=== PATIENT | female | born 1950 | race Caucasian/White ===

== ENCOUNTER 2016-07-26 21:46 | Emergency (ER) | payer MEDICARE, MEDICAID ==
[2016-07-26 21:46] VITALS: BMI 29.2
[2016-07-26 22:01] VITALS: O2SAT 99
[2016-07-26] MEDS ORDERED: Sodium Chloride 0.9% 500 ML IV ONE ×2 (22:14→22:45)
[2016-07-26] MEDS ORDERED: Albuterol-Ipratrop 3 mg / 0.5 (3 ml) UD INH STA (22:15)
[2016-07-26] MEDS ORDERED: Albuterol-Ipratrop 3 mg / 0.5 (3 ml) UD ONE (22:45)
[2016-07-26 22:48] LABS: BASO % 0.4 % (0.0-2.0); EOS # 0.1 K/uL (0.0-0.7); EOS % 0.9 % (0.0-4.0); HEMATOCRIT 38.2 % (34.0-47.0); LYMPH # 3.6 K/uL (1.0-4.3); LYMPH % 36.1 % (20.0-40.0); MEAN CELL VOLUME 87.4 fL (81.0-99.0); MEAN CORPUSCULAR HEMOGLOBIN 29.7 pg (27.0-31.0); MEAN CORPUSCULAR HGB CONC 33.9 g/dL (33.0-37.0); MEAN PLATELET VOLUME 8.9 fL (7.2-11.7); MONO # 0.8 K/uL (0.0-0.8); MONO % 8.2 % (0.0-10.0); NRBC % 0.1 % (0.0-2.0); RED CELL DISTRIBUTION WIDTH 13.5 % (11.5-14.5); WHITE BLOOD COUNT 9.9 K/uL (4.8-10.8)
[2016-07-26 22:57] LABS: CHLORIDE 96 mmol/L (98-107); POTASSIUM 3.6 mmol/L (3.6-5.2); SODIUM 135 mmol/L (132-148)
[2016-07-26 22:59] LABS: BILIRUBIN,TOTAL 0.5 mg/dL (0.2-1.3); GFR AFRICAN-AMERICAN > 60
[2016-07-26 23:00] LABS: ALB/GLOB RATIO 1.4 (1.0-2.1); ALKALINE PHOSPHATASE 113 U/L (38-126); ALT/SGPT 20 U/L (9-52); AST/SGOT 21 U/L (14-36); BLOOD UREA NITROGEN 8 mg/dL (7-17); CARBON DIOXIDE 29 mmol/L (22-30); GLUCOSE,RANDOM 101 mg/dL (65-105); TOTAL PROTEIN 7.7 g/dL (6.3-8.3)
[2016-07-26 23:43] VITALS: BP 157/93; PULSE 69; RESP 18; TEMP 97.9
--- NOTE | 2016-07-26 23:46 | C.PDOC ---
History Of Present Illness Patient is a 65 year old female who presents to the ER with a complaint of a dry nonproductive cough for the past 2 days. Patient reports she has a son with similar symptoms and notes they sleep in the same bed room. Denies fever, chills or vomiting. Time Seen by Provider: 07/26/16 22:06 Chief Complaint (Nursing): Cough, Cold, Congestion History Per: Patient History/Exam Limitations: no limitations Onset/Duration Of Symptoms: Hrs Current Symptoms Are (Timing): Still Present Sick Contacts (Context): Family Member(s) (son) Associated Symptoms: Cough. denies: Fever, Chills, Sputum, Vomiting Recent travel outside of the [place]: No Past Medical History Reviewed: Historical Data, Nursing Documentation, Vital Signs Vital Signs: Last Vital Signs Temp 97.9 F 07/26/16 23:42 Pulse 69 07/26/16 23:42 Resp 18 07/26/16 23:42 BP 157/93 H 07/26/16 23:42 Pulse Ox 99 07/26/16 23:47 - Medical History PMH: Anemia, Anxiety, Arthritis, Bronchitis, Depression, Diverticulitis, Gastritis, Gastrointestinal Ulcer, HTN, Migraine, Pneumonia, Sleep Apnea (DOES NOT USE C PAP) Surgical History: Endoscopy - [facility] Procedures ENDOSC POLYPECTOMY OF LG INTEST (09/17/13) ESOPHAGOGASTRODUODENOSCOPY [EGD] W/CLOSED BIOPSY (09/30/14) Family History: States: Unknown Family Hx - Social History Hx Tobacco Use: No Hx Alcohol Use: No Hx Substance Use: No - Immunization History Hx Tetanus Toxoid Vaccination: Yes Hx Influenza Vaccination: Yes Hx Pneumococcal Vaccination: Yes Review Of Systems Constitutional: Negative for: Fever, Chills Respiratory: Positive for: Cough. Negative for: Sputum Gastrointestinal: Negative for: Vomiting Physical Exam - Physical Exam Appears: Well, Non-toxic Skin: Normal Color, Warm, Dry Head: Atraumatic, Normacephalic Eye(s): bilateral: Normal Inspection, EOMI Oral Mucosa: Moist Throat: Normal, Erythema (mild), No Exudate Neck: Normal, Supple Chest: Symmetrical, No Tenderness Cardiovascular: Rhythm Regular, No Murmur Respiratory: Normal Breath Sounds, No Rales, No Rhonchi, No Wheezing Gastrointestinal/Abdominal: Soft, No Tenderness Neurological/Psych: Oriented x3, Normal Speech, Normal Cognition ED Course And Treatment - Laboratory Results Result Diagrams: 07/26/16 22:46 07/26/16 22:46 Lab Interpretation: Normal (trop neg.) ECG: Interpreted By Me ECG Rhythm: Sinus Rhythm ECG Interpretation: Normal Rate From EC O2 Sat by Pulse Oximetry: 99 Pulse Ox Interpretation: Normal - Radiology CXR: Interpreted by Me CXR Interpretation: Yes: No Acute Disease Progress Note: EKG and CXR ordered. Nebulizer treatment solumedrol and IV fluids administered. Reevaluation Time: 23:41 Reassessment Condition: Improved Medical Decision Making Medical Decision Making: mild cough, non-productive normal labs and CXR son @ home with same symptoms. flu neg. Disposition Doctor Will See Patient In The: Office Counseled Patient/Family Regarding: Studies Performed, Diagnosis - Disposition Referrals: Harpreet Patterson Jr., MD [Primary Care Provider] - Disposition: HOME/ ROUTINE Disposition Time: 23:46 Condition: GOOD Additional Instructions: jesenia Richards/[place] unique dirijidos. Sigue con Dr. Patterson unique necessario. Print Language: DIVEHI - Clinical Impression Clinical Impression: Viral syndrome - Scribe Statement The provider has reviewed the documentation as recorded by the Scribe Provider Attestation: Greg Chu All medical record entries made by the Scribe were at my direction and personally dictated by me. I have reviewed the chart and agree that the record accurately reflects my personal performance of the history, physical exam, medical decision making, and the department course for this patient. I have also personally directed, reviewed, and agree with the discharge instructions and disposition.
--- NOTE | 2016-07-27 07:43 | RAD ---
PROCEDURE: CHEST RADIOGRAPH, 1 VIEW HISTORY: SOB COMPARISON: None available. FINDINGS: LUNGS: Mild venous congestion. Biapical pleural thickening with upper lobe granulomatous changes. PLEURA: No pneumothorax or pleural fluid seen. CARDIOVASCULAR: Normal. OSSEOUS STRUCTURES: No significant abnormalities. VISUALIZED UPPER ABDOMEN: Normal. OTHER FINDINGS: None. IMPRESSION: Mild venous congestion. Biapical pleural thickening with upper lobe granulomatous changes.
--- NOTE | 2016-08-01 20:51 | CARD ---
APPROVED REPORT EKG Measurement Heart [id number] <Conclusion> Normal sinus rhythm Moderate voltage criteria for LVH, may be normal variant Nonspecific ST and T wave abnormality Abnormal ECG
== END 2016-07-27 00:10 | disposition home or self-care (01) ==
LOC: C.ER 21:46 → SUPCPDRO 21:46 → C.ER 07-27 00:10
DX: B34.9 Viral infection, unspecified (principal)
CPT/HCPCS: 71010; 80053; 83880; 84484; 85025; 87040; 87804; 93005; 94150; 94640; 96361; 96374; 99284; J2930; J7040

== ENCOUNTER 2016-12-21 23:41 | Emergency (ER) | payer MEDICARE, MEDICAID ==
[2016-12-21 23:41] VITALS: BMI 29.2
[2016-12-22 00:30] VITALS: O2SAT 99
[2016-12-22] MEDS ORDERED: Sodium Chloride 0.9% 500 ML IV ONE (00:43)
--- NOTE | 2016-12-22 00:44 | C.PDOC ---
History Of Present Illness 66 year old female with prior Hx of HTN and diverticulitis presents to the ED with pain in the abdomen and vomit for approximately 2 weeks. Patient states having nausea, headache, vomit associated with her abdominal pain. She states that she might have lost 20 pounds in 3 weeks due to her lack of appetite because of her symptoms. Patient denies diarrhea, chills, fever or known sick contacts. Time Seen by Provider: 12/22/16 00:30 Chief Complaint (Nursing): Abdominal Pain History Per: Patient History/Exam Limitations: no limitations Onset/Duration Of Symptoms: Days Current Symptoms Are (Timing): Still Present Location Of Pain/Discomfort: Diffuse Quality Of Discomfort: "Pain" Associated Symptoms: Nausea, Vomiting, Loss Of Appetite. denies: Fever, Chills , Diarrhea, Urinary Symptoms Last Bowel Movement: Today (Normal) Recent travel outside of the [place]: No Additional History Per: Patient Past Medical History Reviewed: Historical Data, Nursing Documentation, Vital Signs Vital Signs: Last Vital Signs Temp 98.4 F 12/22/16 04:15 Pulse 84 12/22/16 04:15 Resp 16 12/22/16 04:15 BP 134/72 12/22/16 04:15 Pulse Ox 99 12/22/16 05:06 - Medical History PMH: Anemia, Anxiety, Arthritis, Bronchitis, Depression, Diverticulitis, Gastritis, Gastrointestinal Ulcer, HTN, Migraine, Pneumonia, Sleep Apnea Denies: Chronic Kidney Disease Surgical History: Endoscopy - [facility] Procedures ENDOSC POLYPECTOMY OF LG INTEST (09/17/13) ESOPHAGOGASTRODUODENOSCOPY [EGD] W/CLOSED BIOPSY (09/30/14) Family History: States: Unknown Family Hx - Social History Hx Tobacco Use: No Hx Alcohol Use: No Hx Substance Use: No - Immunization History Hx Tetanus Toxoid Vaccination: No Hx Influenza Vaccination: No Hx Pneumococcal Vaccination: No Review Of Systems Constitutional: Negative for: Fever, Chills, Sweats Cardiovascular: Negative for: Chest Pain Respiratory: Negative for: Shortness of Breath Gastrointestinal: Positive for: Nausea, Vomiting, Abdominal Pain. Negative for : Diarrhea, Constipation Physical Exam - Physical Exam Appears: Non-toxic, No Acute Distress Skin: Normal Color, Warm, Dry Head: Atraumatic, Normacephalic Oral Mucosa: Moist Throat: Normal, No Erythema, No Exudate Neck: Normal, Supple Chest: Symmetrical Cardiovascular: Rhythm Regular Respiratory: Normal Breath Sounds, No Accessory Muscle Use, No Rales, No Rhonchi , No Wheezing Gastrointestinal/Abdominal: Bowel Sounds, Tenderness, Distention, No Rebound Extremity: Normal ROM, No Pedal Edema, Capillary Refill (less than 2 seconds), No Deformity, No Swelling Pulses: Left Radial: Normal, Right Radial: Normal, Left Dorsalis Pedis: Normal, Right Dorsalis Pedis: Normal Neurological/Psych: Oriented x3, Normal Speech, Normal Cognition ED Course And Treatment - Laboratory Results Result Diagrams: 12/22/16 01:00 12/22/16 01:00 O2 Sat by Pulse Oximetry: 99 Pulse Ox Interpretation: Normal - CT Scan/US CT abdo/pelvis Other Rad Studies (CT/US): Interpreted By Me, Read By Radiologist, Radiology Report Reviewed CT/US Interpretation: FINDINGS: Lower thorax: The bilateral lung bases are clear. . ABDOMEN: Liver: No acute findings. Gallbladder and bile ducts: The gallbladder is decompressed. No calcified. stones. No significant intra- or extrahepatic biliary ductal dilation. Pancreas: Enhances homogeneously. No ductal dilation. No discrete mass. Spleen: No acute findings. Adrenals: No acute findings. Kidneys and ureters: No acute findings. No hydronephrosis or renal calculi. No discrete solid mass. . PELVIS: Bladder: No acute findings. Reproductive: A 3.5 cm rounded focus of decreased attenuation is identified. within the left adnexa, findings are suggestive of a simple cyst. . Appendix: The air filled appendix is of normal caliber (series 2, image 67) . . ABDOMEN and PELVIS: Stomach and bowel: Mural thickening with trace surrounding inflammatory. change is identified within the sigmoid colon - findings suggestive of. acute/early diverticulitis, for which clinical correlation is needed. No. drainable fluid collection or perforation is detected. Peritoneum: As above. Lymph nodes: No pathologically enlarged lymph nodes. Vasculature: Calcified atherosclerotic disease. Bones: No acute fracture. . IMPRESSION: Finding suggestive of acute/early rectosigmoid diverticulitis, for which. clinical correlation is needed. Left adnexal ( likely) cyst Medical Decision Making Medical Decision Making: Impression: 66 y/o female presents with abdominal pain associated with vomit for past 2 weeks Plan: * IV fluids, Zofran 4mg IVP, Morphine 4 mg IVP administered * Blood work ordered * UA ordered * CT abdo/pelvis ordered CT abdo/pelvis was ordered to rule out bowel obstruction vs diverticulitis vs peptic ulcer disease. After reviewing the CT report, pete was discharged home with a diagnosis of diverticulitis and was prescribed 2 antibiotics and medicine for pain management. Disposition - Disposition Referrals: [facility] at [facility] [Outside] Disposition: HOME/ ROUTINE Disposition Time: 03:53 Condition: GOOD Prescriptions: Acetaminophen/Hydrocodone Bi [Vicodin 300 mg-5 mg] 1 tab PO QID PRN #14 tab PRN Reason: Pain, Mild (1-3) Metronidazole 500 mg PO TID #30 tablet Sulfamethoxazole/Trimethoprim [Bactrim DS 800 mg-160 mg] 1 tab PO BID #20 tab Forms: [employer] - Clinical Impression Clinical Impression: Diverticulitis large intestine - Scribe Statement The provider has reviewed the documentation as recorded by the Scribe Billy Romero All medical record entries made by the Scribe were at my direction and personally dictated by me. I have reviewed the chart and agree that the record accurately reflects my personal performance of the history, physical exam, medical decision making, and the department course for this patient. I have also personally directed, reviewed, and agree with the discharge instructions and disposition.
[2016-12-22 01:03] LABS: BASO % 0.5 % (0.0-2.0); EOS # 0.1 K/uL (0.0-0.7); EOS % 0.7 % (0.0-4.0); HEMATOCRIT 36.6 % (34.0-47.0); LYMPH # 3.1 K/uL (1.0-4.3); LYMPH % 39.4 % (20.0-40.0); MEAN CELL VOLUME 90.6 fL (81.0-99.0); MEAN CORPUSCULAR HEMOGLOBIN 31.9 pg (27.0-31.0); MEAN CORPUSCULAR HGB CONC 35.2 g/dL (33.0-37.0); MONO # 0.6 K/uL (0.0-0.8); MONO % 7.8 % (0.0-10.0); NRBC % 0.1 % (0.0-2.0); RED CELL DISTRIBUTION WIDTH 13.4 % (11.5-14.5); WHITE BLOOD COUNT 7.8 K/uL (4.8-10.8)
[2016-12-22 01:10] LABS: CHLORIDE 96 mmol/L (98-107)
[2016-12-22 01:11] LABS: POTASSIUM 3.8 mmol/L (3.6-5.2); SODIUM 132 mmol/L (132-148)
[2016-12-22 01:13] LABS: GFR AFRICAN-AMERICAN > 60
[2016-12-22 01:14] LABS: ALB/GLOB RATIO 1.8 (1.0-2.1); ALKALINE PHOSPHATASE 130 U/L (38-126); ALT/SGPT 38 U/L (9-52); AST/SGOT 19 U/L (14-36); BILIRUBIN,TOTAL 0.4 mg/dL (0.2-1.3); BLOOD UREA NITROGEN 7 mg/dL (7-17); CALCIUM 8.7 mg/dl (8.6-10.4); CARBON DIOXIDE 25 mmol/L (22-30); GLUCOSE,RANDOM 94 mg/dL (65-105); TOTAL PROTEIN 7.1 g/dL (6.3-8.3)
[2016-12-22] MEDS ORDERED: Morphine 4 MG/ML VIAL ONE (01:20)
[2016-12-22] MEDS ORDERED: Iodixanol 320 MG/ML 100 ML BOTTLE IV ONE (02:10)
--- NOTE | 2016-12-22 03:21 | CT ---
EXAM: CT Abdomen and Pelvis With Intravenous Contrast CLINICAL HISTORY: 66 years old, female; Pain; Abdominal pain; Prior surgery; Patient HX: 01-21-16 images sent; Additional info: Abd pain TECHNIQUE: Axial computed tomography images of the abdomen and pelvis with intravenous contrast. All CT scans at this facility use one or more dose reduction techniques, viz.: automated exposure control; ma/kV adjustment per patient size (including targeted exams where dose is matched to indication; i.e. head); or iterative reconstruction technique. Coronal and sagittal reformatted images were created and reviewed. CONTRAST: 199 mL of [id number] administered intravenously. COMPARISON: CT - ABD PELVIS PO IV CONTRAST 2016-01-21 19:47 FINDINGS: Lower thorax: The bilateral lung bases are clear. ABDOMEN: Liver: No acute findings. Gallbladder and bile ducts: The gallbladder is decompressed. No calcified stones. No significant intra- or extrahepatic biliary ductal dilation. Pancreas: Enhances homogeneously. No ductal dilation. No discrete mass. Spleen: No acute findings. Adrenals: No acute findings. Kidneys and ureters: No acute findings. No hydronephrosis or renal calculi. No discrete solid mass. PELVIS: Bladder: No acute findings. Reproductive: A 3.5 cm rounded focus of decreased attenuation is identified within the left adnexa, findings are suggestive of a simple cyst. Appendix: The air filled appendix is of normal caliber (series 2, image 67) . ABDOMEN and PELVIS: Stomach and bowel: Mural thickening with trace surrounding inflammatory change is identified within the sigmoid colon - findings suggestive of acute/early diverticulitis, for which clinical correlation is needed. No drainable fluid collection or perforation is detected. Peritoneum: As above. Lymph nodes: No pathologically enlarged lymph nodes. Vasculature: Calcified atherosclerotic disease. Bones: No acute fracture. IMPRESSION: Finding suggestive of acute/early rectosigmoid diverticulitis, for which clinical correlation is needed. Left adnexal (likely) cyst
[2016-12-22 05:53] VITALS: BP 134/72; PULSE 84; RESP 16; TEMP 98.4
== END 2016-12-22 04:15 | disposition home or self-care (01) ==
LOC: C.ER 23:41
DX: K57.32 Diverticulitis of large intestine without perforation or abscess without bleeding (principal)
CPT/HCPCS: 74177; 80053; 83690; 85025; 96374; 96375; 99285; J2270; J2405; J7040; Q9967

== ENCOUNTER 2017-02-22 08:34 | Inpatient (IN) | payer MEDICARE, MEDICAID ==
[2017-02-22 08:36] VITALS: BMI 29.2
--- NOTE | 2017-02-22 09:04 | C.PDOC ---
Time Seen by Provider: 02/22/17 08:37 Chief Complaint (Nursing): Anxiety Past Medical History - Medical History PMH: Anemia, Anxiety, Arthritis, Bronchitis, Depression, Diverticulitis, Gastritis, Gastrointestinal Ulcer, HTN, Migraine, Pneumonia, Sleep Apnea Denies: Chronic Kidney Disease Surgical History: Endoscopy - [facility] Procedures ENDOSC POLYPECTOMY OF LG INTEST (09/17/13) ESOPHAGOGASTRODUODENOSCOPY [EGD] W/CLOSED BIOPSY (09/30/14) Family History: States: Unknown Family Hx - Social History Hx Tobacco Use: No Hx Alcohol Use: No Hx Substance Use: No - Immunization History Hx Tetanus Toxoid Vaccination: No Hx Influenza Vaccination: No Hx Pneumococcal Vaccination: No NIHSS Stroke Scale - Date/Time Evaluation Performed Date Performed: 02/22/17 Time Performed: 09:04 - How Severe is the Stoke Level of Consciousness: 0=Alert LOC to Questions: 0=Both comments correct LOC to commands: 0=Obeys both correctly Best Gaze: 0=Normal Visual: 0=No visual loss Facial: 0=Normal Motor Arm - Left: 0=No drift Motor Arm - Right: 0=No drift Motor Leg - Left: 2=Falls before 5 sec Motor Leg - Right: 0=No drift Limb Ataxia: 0=Absent Sensory: 0=Normal Best Language: 0=No aphasia Dysarthia: 0=Normal articulation Extinction & Inattention (Neglect): 0=Normal, no object Score: 2 Severity Of Stroke: 0= No Stroke Disposition - Disposition
--- NOTE | 2017-02-22 09:05 | C.PDOC ---
History Of Present Illness 66 y/o female with PMHx of Anxiety and Depression brought to ED by EMS with complaints of left sided Hemiparesthesia since last night over 6 hours ago ( Last time well) and decreased sleeping for 2 days. Patient states she is not compliant with medication for 2 days secondary to leaving medication on airplane while coming back from [facility]. Patient denies any other complaints at this time. Time Seen by Provider: 02/22/17 08:37 Chief Complaint (Nursing): Anxiety History Per: Patient History/Exam Limitations: no limitations Onset/Duration Of Symptoms: Days Current Symptoms Are (Timing): Still Present Past Medical History Reviewed: Historical Data, Nursing Documentation, Vital Signs Vital Signs: Last Vital Signs Temp 98.4 F 02/22/17 11:48 Pulse 80 02/22/17 11:54 Resp 18 02/22/17 11:54 BP 181/93 H 02/22/17 12:01 Pulse Ox 100 02/22/17 12:14 - Medical History PMH: Anemia, Anxiety, Arthritis, Bronchitis, Depression, Diverticulitis, Gastritis, Gastrointestinal Ulcer, HTN, Migraine, Pneumonia, Sleep Apnea Surgical History: Endoscopy - [facility] Procedures ENDOSC POLYPECTOMY OF LG INTEST (09/17/13) ESOPHAGOGASTRODUODENOSCOPY [EGD] W/CLOSED BIOPSY (09/30/14) Family History: States: No Known Family Hx - Social History Hx Tobacco Use: No Hx Alcohol Use: No Hx Substance Use: No - Immunization History Hx Tetanus Toxoid Vaccination: No Hx Influenza Vaccination: No Hx Pneumococcal Vaccination: No Review Of Systems Cardiovascular: Negative for: Chest Pain Respiratory: Negative for: Shortness of Breath Neurological: Positive for: Numbness. Negative for: Weakness Physical Exam - Physical Exam Additional Physical Exam Comments: Constitutional: No acute distress. Anxious appearing Head: Normocephalic. Atraumatic. Eyes: PERRL. ENT: Moist mucous membranes. Neck: Supple. Cardiovascular: Regular rate. Radial pulse 2+ bilaterally. Chest: No tenderness. Respiratory: Clear to auscultation bilaterally. GI: Soft. Nontender. Nondistended. Back: No CVA tenderness. Musculoskeletal: No tenderness or swelling of extremities. Skin: No rash. Neurologic: Alert. No facial droop. Sensation to light touch subjectively decreased on Left face, arm and leg. Motor on right side 5/5. Motor 4+/5 left arm and leg. ED Course And Treatment - Laboratory Results Result Diagrams: 02/22/17 09:43 02/22/17 09:43 O2 Sat by Pulse Oximetry: 100 (RA) Pulse Ox Interpretation: Normal NIHSS Stroke Scale - Date/Time Evaluation Performed Date Performed: 02/22/17 Time Performed: 09:05 When Was NIHSS Performed: Baseline - How Severe is the Stroke Level of Consciousness: 0=Alert LOC to Questions: 0=Both comments correct LOC to commands: 0=Obeys both correctly Best Gaze: 0=Normal Visual: 0=No visual loss Facial: 0=Normal Motor Arm - Left: 0=No drift Motor Arm - Right: 0=No drift Motor Leg - Left: 2=Falls before 5 sec Motor Leg - Right: 0=No drift Limb Ataxia: 0=Absent Sensory: 0=Normal Best Language: 0=No aphasia Dysarthia: 0=Normal articulation Extinction & Inattention (Neglect): 0=Normal, no object Score: 2 Severity Of Stroke: 1-4 = Minor Stroke rTPA Inclusion/Exclusion - Refusal of Treatment Patient Refused Treatment: No - Inclusion Criteria for Altepase Patient is 18 years or Older: Yes The Clinical Diagnosis of Ischemic Stroke That is Causing a Potentially Disabling Neurological Deficit: Yes Time of Onset is Well Established to be Less Than 270 Minute Before Treatment Would Begin: No Risk/Benefit Discussed With Patient/Family Member Present: Yes Medical Decision Making Medical Decision Making: Plan: Blood work, Ativan and UA, ECG, CT head w/o contrast ordered CXR: IMPRESSION: No active pulmonary disease. EKG NSR 80 bpm, no ST elevations, no change from previous. CT Head w/o Contrast IMPRESSION: No acute intracranial abnormality. Mild chronic microangiopathic changes. Dr. Patterson accepts admission to his service for CVA evaluation. Home dose HTN medications administered. Discussed case with resident. Disposition Discussed With : Harpreet Patterson Jr. Doctor Will See Patient In The: Hospital Counseled Patient/Family Regarding: Studies Performed - Disposition Disposition: HOSPITALIZED Disposition Time: 11:07 Condition: FAIR - Clinical Impression Clinical Impression: Hemiparesthesia - Scribe Statement The provider has reviewed the documentation as recorded by the Kevynibalek Daniel All medical record entries made by the Kevynibalek were at my direction and personally dictated by me. I have reviewed the chart and agree that the record accurately reflects my personal performance of the history, physical exam, medical decision making, and the department course for this patient. I have also personally directed, reviewed, and agree with the discharge instructions and disposition.
--- NOTE | 2017-02-22 09:21 | RAD ---
HISTORY: hemiparesthesia COMPARISON: 07/26/2016. FINDINGS: LUNGS: The lungs are well inflated and clear. PLEURA: No significant pleural effusion identified, no pneumothorax apparent. CARDIOVASCULAR: Normal. OSSEOUS STRUCTURES: No significant abnormalities. VISUALIZED UPPER ABDOMEN: Normal. OTHER FINDINGS: None. IMPRESSION: No active pulmonary disease.
[2017-02-22 09:53] LABS: BASO # 0.1 K/uL (0.0-0.2); BASO % 0.6 % (0.0-2.0); EOS % 0.1 % (0.0-4.0); HEMATOCRIT 34.8 % (34.0-47.0); LYMPH # 1.1 K/uL (1.0-4.3); LYMPH % 12.5 % (20.0-40.0); MEAN CORPUSCULAR HEMOGLOBIN 31.7 pg (27.0-31.0); MEAN CORPUSCULAR HGB CONC 35.7 g/dL (33.0-37.0); MEAN PLATELET VOLUME 9.2 fL (7.2-11.7); MONO # 0.3 K/uL (0.0-0.8); MONO % 3.9 % (0.0-10.0); RED CELL DISTRIBUTION WIDTH 13.6 % (11.5-14.5); WHITE BLOOD COUNT 8.8 K/uL (4.8-10.8)
[2017-02-22 09:58] LABS: MEAN CELL VOLUME 88.6 fL (81.0-99.0)
[2017-02-22 10:01] LABS: INR 1.2
[2017-02-22 10:05] LABS: RBC URINE 1 /hpf (0-3); URINE BACTERIA RARE (<OCC); URINE BILIRUBIN NEGATIVE (NEGATIVE); URINE BLOOD NEGATIVE (NEGATIVE); URINE COLOR Colorless (YELLOW); URINE GLUCOSE (UA) 1+ mg/dL (Normal); URINE KETONE NEGATIVE (NEGATIVE); URINE LEUKOCYTE ESTERASE 1+ Leu/uL (Negative); URINE PROTEIN NEGATIVE (NEGATIVE); URINE UROBILINOGEN NORMAL mg/dL (0.2-1.0); WBC URINE 6 /hpf (0-5)
[2017-02-22 10:09] LABS: ALB/GLOB RATIO 1.6 (1.0-2.1); ALKALINE PHOSPHATASE 144 U/L (38-126); ALT/SGPT 33 U/L (9-52); AST/SGOT 22 U/L (14-36); BILIRUBIN,TOTAL 0.5 mg/dL (0.2-1.3); BLOOD UREA NITROGEN 6 mg/dL (7-17); CALCIUM 8.9 mg/dl (8.6-10.4); CARBON DIOXIDE 29 mmol/L (22-30); CHLORIDE 97 mmol/L (98-107); CHOLESTEROL 193 mg/dL (0-199); GFR AFRICAN-AMERICAN > 60; GLUCOSE,RANDOM 139 mg/dL (65-105); POTASSIUM 3.5 mmol/L (3.6-5.2); SODIUM 134 mmol/L (132-148); TOTAL PROTEIN 7.2 g/dL (6.3-8.3)
--- NOTE | 2017-02-22 10:25 | CT ---
PROCEDURE: CT HEAD WITHOUT CONTRAST. HISTORY: hemiparesthesia COMPARISON: 12/11/2012. TECHNIQUE: Axial computed tomography images were obtained through the head/brain without intravenous contrast. Radiation dose: Total exam DLP = 892.85 mGy-cm. This CT exam was performed using one or more of the following dose reduction techniques: Automated exposure control, adjustment of the mA and/or kV according to patient size, and/or use of iterative reconstruction technique. FINDINGS: HEMORRHAGE: No intracranial hemorrhage. BRAIN: There are mild chronic microangiopathic changes. There is no mass, mass effect or abnormal extra-axial fluid collection. VENTRICLES: The ventricles are normal in size, shape and configuration. CALVARIUM: Unremarkable. PARANASAL SINUSES: Unremarkable as visualized. No significant inflammatory changes. MASTOID AIR CELLS: Unremarkable as visualized. No inflammatory changes. OTHER FINDINGS: None. IMPRESSION: No acute intracranial abnormality. Mild chronic microangiopathic changes.
[2017-02-22 15:00] VITALS: O2SAT 98
--- NOTE | 2017-02-22 16:31 | CP.PCM.HP ---
History of Present Illness - History of Present Illness History of Present Illness: PGY1 History and Physical for Dr. Patterson Past Patient History - Infectious Disease Hx of Infectious Diseases: None - Past Medical History & Family History Past Medical History?: Yes - Past Social History Smoking Status: Never Smoked - CARDIAC Hx Cardiac Disorders: Yes Hx Angina: Yes Hx Atrial Fibrillation: No Hx Cardia Arrhythmia: No Hx Circulatory Problems: No Hx Congestive Heart Failure: No Hx Heart Attack: No Hx Heart Murmur: No Hx Heart Transplant: No Hx Hypercholesterolemia: No Hx Hypertension: Yes Hx Hypotension: No Hx Internal Defibrillator: No Hx Mitral Valve Prolapse: No Hx Pacemaker: No Hx Peripheral Edema: No Hx Peripheral Vascular Disease: No - PULMONARY Hx Asthma: No Hx Bronchitis: Yes Hx Chronic Obstructive Pulmonary Disease (COPD): No Hx Emphysema: No Hx Lung Cancer: No Hx Pneumonia: Yes Hx Pulmonary Edema: No Hx Pulmonary Embolism: No Hx Respiratory Aspiration: No Hx Respiratory Tract Infection: No Hx Sleep Apnea: Yes Hx Tuberculosis: No - NEUROLOGICAL Hx Neurological Disorder: No Hx Alzheimer's Disease: No HX Cerebrovascular Accident: No Hx Dementia: No Hx Dizziness: Yes Hx Meningitis: No Hx Migraine: Yes Hx Multiple Sclerosis: No Hx Paralysis: No Hx Parkinson's Disease: No Hx Seizures: No Hx Syncope: No Hx Transient Ischemic Attacks (TIA): Yes Hx Vertigo: No - HEENT Hx HEENT Problems: Yes Hx Blind: No Hx Cataracts: Yes Hx Deafness: No Hx Difficulty Chewing: No Hx Epistaxis: No Hx Glaucoma: No Hx Macular Degeneration: No Hx Sinusitis: No - RENAL Hx Chronic Kidney Disease: No - ENDOCRINE/METABOLIC Hx Endocrine Disorders: No - HEMATOLOGICAL/ONCOLOGICAL Hx AIDS: No Hx Anemia: Yes Hx Blood Transfusions: No Hx Blood Transfusion Reaction: No Hx Bruising: No Hx Cancer: No Hx Chemotherapy: No Hx Cirrhosis: No Hx Gum Bleeding: No Hx Hemophilia: No Hx Hepatitis A: No Hx Hepatitis B: No Hx Hepatitis C: No Hx Human Immunodeficiency Virus (HIV): No Hx Leukemia: No Hx Metastesis: No Hx Shingles: No Hx Sickle Cell Disease: No Hx Unexplained Bleeding: No Hx von Willebrand's Disease: No - INTEGUMENTARY Hx Dermatological Problems: No - MUSCULOSKELETAL/RHEUMATOLOGICAL Hx Arthritis: Yes Hx Back Pain: No Hx Degenerative Joint Disease: No Hx Falls: No Hx Fractures: No Hx Gout: No Hx Herniated Disk: No Hx Myasthenia Gravis: No Hx Osteoarthritis: No Hx Osteomyelitis: No Hx Osteoporosis: No Hx Rhabdomyolysis: No Hx Rheumatoid Arthritis: No Hx Spinal Stenosis: No Hx Unsteady Gait: No - GASTROINTESTINAL Hx Gastrointestinal Disorders: Yes Hx Bowel Surgery: No Hx Clostridium Difficile: No Hx Colitis: No Hx Colostomy: No Hx Constipation: No Hx Crohn's Disease: No Hx Diarrhea: No Hx Diverticulitis: Yes Hx Esophageal Varices: No Hx Fatty Liver Disease: No Hx Gall Bladder Disease: No Hx Gastritis: Yes Hx Gastroesophageal Reflux: No Hx Hemorrhoids: No Hx Ileostomy: No Hx Irritable Bowel: No Hx Liver Failure: No Hx Nausea: No Hx Pancreatitis: No HX Swallowing Problems: No Hx Ulcer: Yes Hx Vomiting: No - GENITOURINARY/GYNECOLOGICAL Hx Genitourinary Disorders: No - PSYCHIATRIC Hx Anxiety: Yes Hx Bipolar Disorder: No Hx Depression: Yes Hx Emotional Abuse: No Hx Hallucinations: No Hx Panic Symptoms: No Hx Paranoia: No Hx Post Traumatic Stress Disorder: No Hx Psychosis: No Hx Physical Abuse: No Hx Schizophrenia: No Hx Sexual Abuse: No Hx Substance Use: No - SURGICAL HISTORY Hx Surgeries: No Other/Comment: neck cyst - ANESTHESIA Hx Anesthesia: Yes Hx Anesthesia Reactions: No Hx Malignant Hyperthermia: No Has any member of the family had a problem w/ anesthesia?: No Meds Allergies/Adverse Reactions: Allergies Allergy/AdvReac Type Severity Reaction Status Date / Time clarithromycin [From Biaxin] Allergy Verified 02/22/17 08:50 levofloxacin [From Levaquin] Allergy Verified 02/22/17 08:50 Penicillins Allergy Verified 02/22/17 08:50 pollen Allergy Intermediate CONGESTION Uncoded 02/22/17 08:50 vomiting meds Allergy Uncoded 02/22/17 08:50 Results - Vital Signs Recent Vital Signs: Last Vital Signs Temp 98.7 F 02/22/17 14:14 Pulse 79 02/22/17 14:14 Resp 16 02/22/17 14:14 BP 168/90 H 02/22/17 14:14 Pulse Ox 98 02/22/17 14:14 - Labs Result Diagrams: 02/22/17 09:43 02/22/17 09:43 Labs: Laboratory Results - last 24 hr 02/22/17 02/22/17 02/22/17 09:29 09:43 09:43 WBC 8.8 RBC 3.93 Hgb 12.4 Hct 34.8 MCV 88.6 D MCH 31.7 H MCHC 35.7 RDW 13.6 Plt Count 242 MPV 9.2 Neut % (Auto) 82.9 H Lymph % (Auto) 12.5 L [place] % (Auto) 3.9 Eos % (Auto) 0.1 Baso % (Auto) 0.6 Neut # 7.3 H Lymph # 1.1 [place] # 0.3 Eos # 0.0 Baso # 0.1 PT 13.6 H INR 1.2 APTT 31 Sodium Potassium Chloride Carbon Dioxide Anion Gap BUN Creatinine Est GFR ( Amer) Est GFR (Non-Af Amer) POC Glucose (mg/dL) 135 H Random Glucose Hemoglobin A1c Calcium Total Bilirubin AST ALT Alkaline Phosphatase Troponin I Total Protein Albumin Globulin Albumin/Globulin Ratio Triglycerides Cholesterol LDL Cholesterol Direct HDL Cholesterol Urine Color Urine Clarity Urine pH Ur Specific [place] Urine Protein Urine Glucose (UA) Urine Ketones Urine Blood Urine Nitrate Urine Bilirubin Urine Urobilinogen Ur Leukocyte Esterase Urine WBC (Auto) Urine RBC (Auto) Ur Squamous Epith Cells Urine Bacteria Blood Type Antibody Screen 02/22/17 02/22/17 02/22/17 09:43 09:43 09:43 WBC RBC Hgb Hct MCV MCH MCHC RDW Plt Count MPV Neut % (Auto) Lymph % (Auto) [place] % (Auto) Eos % (Auto) Baso % (Auto) Neut # Lymph # [place] # Eos # Baso # PT INR APTT Sodium 134 Potassium 3.5 L Chloride 97 L Carbon Dioxide 29 Anion Gap 12 BUN 6 L Creatinine 0.5 L Est GFR ( Amer) > 60 Est GFR (Non-Af Amer) > 60 POC Glucose (mg/dL) Random Glucose 139 H Hemoglobin A1c 5.6 Calcium 8.9 Total Bilirubin 0.5 AST 22 ALT 33 Alkaline Phosphatase 144 H Troponin I < 0.0120 Total Protein 7.2 Albumin 4.5 Globulin 2.8 Albumin/Globulin Ratio 1.6 Triglycerides 127 Cholesterol 193 LDL Cholesterol Direct 109 HDL Cholesterol 44 Urine Color Colorless Urine Clarity Clear Urine pH 7.0 Ur Specific [place] 1.004 Urine Protein Negative Urine Glucose (UA) 1+ Urine Ketones Negative Urine Blood Negative Urine Nitrate Negative Urine Bilirubin Negative Urine Urobilinogen Normal Ur Leukocyte Esterase 1+ H Urine WBC (Auto) 6 H Urine RBC (Auto) 1 Ur Squamous Epith Cells < 1 Urine Bacteria Rare Blood Type Antibody Screen 02/22/17 09:43 WBC RBC Hgb Hct MCV MCH MCHC RDW Plt Count MPV Neut % (Auto) Lymph % (Auto) [place] % (Auto) Eos % (Auto) Baso % (Auto) Neut # Lymph # [place] # Eos # Baso # PT INR APTT Sodium Potassium Chloride Carbon Dioxide Anion Gap BUN Creatinine Est GFR ( Amer) Est GFR (Non-Af Amer) POC Glucose (mg/dL) Random Glucose Hemoglobin A1c Calcium Total Bilirubin AST ALT Alkaline Phosphatase Troponin I Total Protein Albumin Globulin Albumin/Globulin Ratio Triglycerides Cholesterol LDL Cholesterol Direct HDL Cholesterol Urine Color Urine Clarity Urine pH Ur Specific [place] Urine Protein Urine Glucose (UA) Urine Ketones Urine Blood Urine Nitrate Urine Bilirubin Urine Urobilinogen Ur Leukocyte Esterase Urine WBC (Auto) Urine RBC (Auto) Ur Squamous Epith Cells Urine Bacteria Blood Type B POSITIVE Antibody Screen Negative
[2017-02-22 16:51] VITALS: BP 154/83; PULSE 71; RESP 20; TEMP 98.9
--- NOTE | 2017-02-22 16:58 | CP.PCM.DIS ---
Provider - Provider Date of Admission: 02/22/17 11:07 Attending physician: Harpreet Patterson Jr, MD Time Spent in preparation of Discharge (in minutes): 20 Hospital Course - Lab Results Lab Results: Most Recent Lab Values WBC 8.8 K/uL (4.8-10.8) 02/22/17 09:43 RBC 3.93 Mil/uL (3.80-5.20) 02/22/17 09:43 Hgb 12.4 g/dL (11.0-16.0) 02/22/17 09:43 Hct 34.8 % (34.0-47.0) 02/22/17 09:43 MCV 88.6 fL (81.0-99.0) D 02/22/17 09:43 MCH 31.7 pg (27.0-31.0) H 02/22/17 09:43 MCHC 35.7 g/dL (33.0-37.0) 02/22/17 09:43 RDW 13.6 % (11.5-14.5) 02/22/17 09:43 Plt Count 242 K/uL (130-400) 02/22/17 09:43 MPV 9.2 fL (7.2-11.7) 02/22/17 09:43 Neut % (Auto) 82.9 % (50.0-75.0) H 02/22/17 09:43 Lymph % (Auto) 12.5 % (20.0-40.0) L 02/22/17 09:43 [place] % (Auto) 3.9 % (0.0-10.0) 02/22/17 09:43 Eos % (Auto) 0.1 % (0.0-4.0) 02/22/17 09:43 Baso % (Auto) 0.6 % (0.0-2.0) 02/22/17 09:43 Neut # 7.3 K/uL (1.8-7.0) H 02/22/17 09:43 Lymph # 1.1 K/uL (1.0-4.3) 02/22/17 09:43 [place] # 0.3 K/uL (0.0-0.8) 02/22/17 09:43 Eos # 0.0 K/uL (0.0-0.7) 02/22/17 09:43 Baso # 0.1 K/uL (0.0-0.2) 02/22/17 09:43 PT 13.6 SECONDS (9.7-12.2) H 02/22/17 09:43 INR 1.2 02/22/17 09:43 APTT 31 SECONDS (21-34) 02/22/17 09:43 Sodium 134 mmol/L (132-148) 02/22/17 09:43 Potassium 3.5 mmol/L (3.6-5.2) L 02/22/17 09:43 Chloride 97 mmol/L (98-107) L 02/22/17 09:43 Carbon Dioxide 29 mmol/L (22-30) 02/22/17 09:43 Anion Gap 12 (10-20) 02/22/17 09:43 BUN 6 mg/dL (7-17) L 02/22/17 09:43 Creatinine 0.5 mg/dL (0.7-1.2) L 02/22/17 09:43 Est GFR ( Amer) > 60 02/22/17 09:43 Est GFR (Non-Af Amer) > 60 02/22/17 09:43 POC Glucose (mg/dL) 135 mg/dL (65-110) H 02/22/17 09:29 Random Glucose 139 mg/dL (65-105) H 02/22/17 09:43 Hemoglobin A1c 5.6 % (4.2-6.5) 02/22/17 09:43 Calcium 8.9 mg/dl (8.6-10.4) 02/22/17 09:43 Total Bilirubin 0.5 mg/dL (0.2-1.3) 02/22/17 09:43 AST 22 U/L (14-36) 02/22/17 09:43 ALT 33 U/L (9-52) 02/22/17 09:43 Alkaline Phosphatase 144 U/L (38-126) H 02/22/17 09:43 Troponin I < 0.0120 ng/mL (0.00-0.120) 02/22/17 09:43 Total Protein 7.2 g/dL (6.3-8.3) 02/22/17 09:43 Albumin 4.5 g/dL (3.5-5.0) 02/22/17 09:43 Globulin 2.8 gm/dL (2.2-3.9) 02/22/17 09:43 Albumin/Globulin Ratio 1.6 (1.0-2.1) 02/22/17 09:43 Triglycerides 127 mg/dL (0-149) 02/22/17 09:43 Cholesterol 193 mg/dL (0-199) 02/22/17 09:43 LDL Cholesterol Direct 109 mg/dL (0-129) 02/22/17 09:43 HDL Cholesterol 44 mg/dL (30-70) 02/22/17 09:43 Urine Color Colorless (YELLOW) 02/22/17 09:43 Urine Clarity Clear (Clear) 02/22/17 09:43 Urine pH 7.0 (5.0-8.0) 02/22/17 09:43 Ur Specific [place] 1.004 (1.003-1.030) 02/22/17 09:43 Urine Protein Negative mg/dL (NEGATIVE) 02/22/17 09:43 Urine Glucose (UA) 1+ mg/dL (Normal) 02/22/17 09:43 Urine Ketones Negative mg/dL (NEGATIVE) 02/22/17 09:43 Urine Blood Negative (NEGATIVE) 02/22/17 09:43 Urine Nitrate Negative (NEGATIVE) 02/22/17 09:43 Urine Bilirubin Negative (NEGATIVE) 02/22/17 09:43 Urine Urobilinogen Normal mg/dL (0.2-1.0) 02/22/17 09:43 Ur Leukocyte Esterase 1+ Matthew/uL (Negative) H 02/22/17 09:43 Urine WBC (Auto) 6 /hpf (0-5) H 02/22/17 09:43 Urine RBC (Auto) 1 /hpf (0-3) 02/22/17 09:43 Ur Squamous Epith Cells < 1 /hpf (0-5) 02/22/17 09:43 Urine Bacteria Rare (<OCC) 02/22/17 09:43 Blood Type B POSITIVE 02/22/17 09:43 Antibody Screen Negative 02/22/17 09:43 Discharge Plan - Follow Up Plan Condition: FAIR Disposition: HOME/ ROUTINE Additional Instructions: Patient is to be discharged home per Dr. Patterson. She is being given no new prescriptions. He will call [facility] on her behalf to speak with the Pharmacist about the patient getting her medications. She is to follow up with her primary care physician as needed. She is to continue taking her medications as prescribed by her primary care physician. If any new or worsening symptoms occur, please go to the nearest hospital. Referrals: Harpreet Patterson Jr., MD [Medical Doctor] -
== END 2017-02-22 17:10 | disposition home or self-care (01) | DRG 93 ==
LOC: C.ER 08:34 → C.9E 11:07 → C.6T 11:44
PROVIDERS: ADMIT Internal Medicine; ATTEND Internal Medicine
DX: R20.2 Paresthesia of skin (principal); G43.909 Migraine, unspecified, not intractable, without status migrainosus; I10 Essential (primary) hypertension; Z86.73 Personal history of transient ischemic attack (TIA), and cerebral infarction without residual deficits

== ENCOUNTER 2017-10-19 19:15 | Inpatient (IN) | payer MEDICARE, MEDICAID ==
[2017-10-19 19:16] VITALS: BMI 29.2
[2017-10-19 20:44] LABS: BASO % 0.6 % (0.0-2.0); EOS % 0.5 % (0.0-4.0); HEMOGLOBIN 12.9 g/dL (11.0-16.0); LYMPH # 2.7 K/uL (1.0-4.3); LYMPH % 31.9 % (20.0-40.0); MEAN CELL VOLUME 91.6 fL (81.0-99.0); MEAN CORPUSCULAR HEMOGLOBIN 31.5 pg (27.0-31.0); MEAN CORPUSCULAR HGB CONC 34.4 g/dL (33.0-37.0); MEAN PLATELET VOLUME 8.7 fL (7.2-11.7); MONO # 0.6 K/uL (0.0-0.8); MONO % 6.8 % (0.0-10.0); NEUT # 5.1 K/uL (1.8-7.0); NEUT % 60.2 % (50.0-75.0); RBC 4.1 Mil/uL (3.80-5.20); RED CELL DISTRIBUTION WIDTH 13.6 % (11.5-14.5); WHITE BLOOD COUNT 8.5 K/uL (4.8-10.8)
[2017-10-19 20:51] LABS: URINE BILIRUBIN NEGATIVE (NEGATIVE); URINE BLOOD 1+ (NEGATIVE); URINE CLARITY Clear (Clear); URINE COLOR Colorless (YELLOW); URINE GLUCOSE (UA) NORMAL (Normal); URINE LEUKOCYTE ESTERASE TRACE Leu/uL (Negative); URINE PROTEIN NEGATIVE (NEGATIVE); URINE UROBILINOGEN NORMAL mg/dL (0.2-1.0)
[2017-10-19 20:57] LABS: ALB/GLOB RATIO 1.4 (1.0-2.1); ALBUMIN 4.7 g/dL (3.5-5.0); ALT/SGPT 30 U/L (9-52); AST/SGOT 17 U/L (14-36); BLOOD UREA NITROGEN 8 mg/dL (7-17); CALCIUM 9.5 mg/dl (8.6-10.4); GFR NON-AFRICAN AMERICAN > 60
[2017-10-19 21:02] LABS: BARBITURATES, UR POSITIVE (NEGATIVE); BENZODIAZEPINES, UR POSITIVE (NEGATIVE); OPIATES, UR NEGATIVE (NEGATIVE); PHENCYCLIDINE, UR NEGATIVE (NEGATIVE)
--- NOTE | 2017-10-19 22:15 | C.PDOC ---
History Of Present Illness 67 year old female patient presents to the ER requesting psychiatric evaluation. Patient reports she has anxiety and depression and she takes medication for them. Patient states she is very anxious along with insomnia and is taking too much ambien; her depression is due to family issues. Patient denies SI/HI. Time Seen by Provider: 10/19/17 19:39 Chief Complaint (Nursing): Anxiety History Per: Patient History/Exam Limitations: no limitations Current Symptoms Are (Timing): Still Present Associated Symptoms: Anxiety, Depression Past Medical History Reviewed: Historical Data, Nursing Documentation, Vital Signs Vital Signs: Last Vital Signs Temp 98 F 10/19/17 23:24 Pulse 85 10/19/17 23:24 Resp 20 10/19/17 23:24 BP 140/80 10/19/17 23:24 Pulse Ox 97 10/19/17 23:24 - Medical History PMH: Anemia, Anxiety, Arthritis, Bronchitis, Depression, Diverticulitis, Gastritis, Gastrointestinal Ulcer, HTN, Migraine, Pneumonia, Sleep Apnea, TIA Surgical History: Endoscopy - [facility] Procedures ENDOSC POLYPECTOMY OF LG INTEST (09/17/13) ESOPHAGOGASTRODUODENOSCOPY [EGD] W/CLOSED BIOPSY (09/30/14) Family History: States: Unknown Family Hx - Social History Hx Tobacco Use: No Hx Alcohol Use: No Hx Substance Use: No - Immunization History Hx Tetanus Toxoid Vaccination: No Hx Influenza Vaccination: No Hx Pneumococcal Vaccination: No Review Of Systems Except As Marked, All Systems Reviewed And Found Negative. Psych: Positive for: Anxiety, Depression. Negative for: Suicidal ideation, Other (homicidal ideation) Physical Exam - Physical Exam Appears: Non-toxic, No Acute Distress Skin: Normal Color, Warm, Dry Head: Atraumatic, Normacephalic Eye(s): bilateral: Normal Inspection Ear(s): Bilateral: Normal Oral Mucosa: Moist Neck: Normal ROM, Supple Cardiovascular: Rhythm Regular Respiratory: Normal Breath Sounds Extremity: Normal ROM (x4) Neurological/Psych: Oriented x3, Normal Speech Gait: Steady ED Course And Treatment - Laboratory Results Result Diagrams: 10/19/17 20:40 10/19/17 20:40 O2 Sat by Pulse Oximetry: 100 (RA) Pulse Ox Interpretation: Normal Progress Note: Impression: Anxiety and depression; patient requesting psych eval. Plans: -- EKG. -- drug screen. -- blood work. -- UA. Discussed case with crisis: patient is medically cleared for psychiatric admission under Dr. Nails. Reassess: Patient is resting comfortably. Patient will be admitted to psychiatric for further evaluation. Disposition - Disposition Disposition: HOSPITALIZED Disposition Time: 23:10 Condition: STABLE - Clinical Impression Clinical Impression: Mixed anxiety and depressive disorder - PA / SUPERVISOR MACHINE SETTER / Resident Statement / has reviewed & agrees with the documentation as recorded. - Scribe Statement The provider has reviewed the documentation as recorded by the Kain Salazar Do All medical record entries made by the Kain were at my direction and personally dictated by me. I have reviewed the chart and agree that the record accurately reflects my personal performance of the history, physical exam, medical decision making, and the department course for this patient. I have also personally directed, reviewed, and agree with the discharge instructions and disposition.
--- NOTE | 2017-10-20 00:30 | PCM.BM ---
<Ilene Bateman - Last Filed: 10/20/17 00:28> Treatment Plan Problems - Problems identified on initial assessmt Suicidal ideation Date Initiated: 10/20/17 Time Initiated: 00:15 Assessment reference: NA Status: Active Treatment assets and liabiliti Patient Assests: cooperative, ADL independent, negotiates basic needs Patient Liabilities: poor support system - Milieu Protocol Maintain good personal hygiene: daily Encourage regular showers, daily Remind patient to perform daily oral care, daily Assist patient to perform ADL's Maintain personal safety: every shift Educate patient to report safety concerns to staff, every shift Monitor environment for contraband/sharps Medication safety: Monitor for expected outcome, potential side effects: every shift, Assess barriers to learning: every shift, Assess readiness for medication education: every shift <Alia Saleh - Last Filed: 10/23/17 12:05> Family Contact Family involvement: Family/SO is involved Family contact: Patient declines to allow family contact at present - Goals for Treatment Patient goals for treatment: "I need a therapist." Discharge/Continuing Care - Education Needs Education Needs: Patient Medication, Patient Coping Skills - Discharge Discharge Criteria: Tolerates medication w/o severe side effects, Free of Suicidal thoughts, Reduction of target symptoms Discharge to:: Home, With Family - Treatment Team Participation Discussed with Family/SO: No Was Patient/Family/SO present at Treatment Team Meeting: Yes <Araceli King - Last Filed: 10/25/17 13:21> - Diagnosis (1) Mixed anxiety and depressive disorder Status: Acute Interventions: 10/25/17 13:20 * Assess/adjust medications daily and /or as needed * See patient on an individual basis 7x/week to assess symptoms of depression * Monitor for side effects & effectiveness of medications * (2) Sedative, hypnotic or anxiolytic use disorder, severe, dependence Status: Acute Interventions: 10/25/17 13:21 * Assess 7x/week regarding severity of withdrawal * Educate regarding risks, benefits, side effects and alternatives of medications * Use Motivational Interviewing for abstinence * Use CBT for relapse prevention * Medication management for withdrawal symptoms * Encourage medication assisted treatment *
[2017-10-20] MEDS ORDERED: Pneumococcal 23-Valent Vaccine IM ONE (02:16)
[2017-10-20] MEDS: Metoprolol Succinate 100 mg XL Tab PO SCH (11:10)
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
[2017-10-21] MEDS: Metoprolol Succinate 100 mg XL Tab PO SCH (09:20)
--- NOTE | 2017-10-21 10:09 | PCM.PYCHPN ---
Psychiatric Progress Note - Psychiatric Progress Note Patient seen today, length of contact: 15 min Patient Chief Complaint: I am feeling depressed,' Problems Identified/Issues Discussed: Patient seen and evaluated, chart reviewed and discussed with the nurse. Pt reports depressed mood, feelings of hopelessness and helplessness. Pt remained disorganized and internally preoccupied. She remained isolated and withdrawn, and confined to his room. Patient reports of withdrawal symptoms including abdominal cramps, anxiety, headaches and sweating. She denies any AVH or any paranoia. Patient is compliant with medications and denies any side effects. Symptoms are improving but pt needs more time to stabilize. Support and psychoeducation given. Medication Change: Yes Medical Record Reviewed: Yes Mental Status Examination - Cognitive Function Orientation: Person, Place, Situation, Time Memory: Intact Attention: WNL Concentration: Poor Association: WNL Fund of Knowledge: Poor - Mood Mood: Depressed, Anxious - Affect Affect: Constricted - Speech Speech: Soft - Formal Thought Process Formal Thought Process: No Impairment - Suicidal Ideation Suicidal Ideation: No - Homicidal Ideation Homicidal Ideation: No Goal/Treatment Plan - Goal/Treatment Plan Need for Continued Stay: Severe depression anxiety, Severe functional impairment Progress Toward Problem(s) and Goals/Treatment Plan: Major depressive disorder recurrent severe with psychotic features -CBT -Psychoeducation -Supportive therapy, group therapy -Zoloft 100 mg by mouth daily -Remeron 30 mg PO QHS -Seroquel 100 mg P OQHS -Gabapentin for augmentation -Trazodone for insomnia -Hydroxyzine for anxiety Sed/Hyp use disorder severe Sed/Hyp withdrawal -CBT -Psychoeducation -Supportive therapy, individual therapy -Ativan taper - Smoking Cessation Smoking Cessation Initiated: No
[2017-10-21] MEDS: Pantoprazole 20 mg EC Tab PO SCH (18:16)
[2017-10-22] MEDS: Pantoprazole 20 mg EC Tab PO SCH ×2 (09:56→18:00)
[2017-10-22] MEDS: Metoprolol Succinate 100 mg XL Tab PO SCH (09:56)
--- NOTE | 2017-10-22 16:38 | CARD ---
APPROVED REPORT Date of service: 10/19/2017 EKG Measurement Heart [id number] <Conclusion> Normal sinus rhythm Minimal voltage criteria for LVH, may be normal variant Nonspecific ST abnormality Abnormal ECG
[2017-10-22] MEDS ORDERED: Vitamins A & D Oint UD Foilpak TOP PRN (19:52)
[2017-10-22] MEDS ORDERED: Vitamins A & D Oint UD Foilpak TOP SCH (20:00)
--- NOTE | 2017-10-22 23:50 | PCM.PYCHPN ---
Mental Status Examination - Cognitive Function Orientation: Person, Place, Situation, Time - Mood Mood: Depressed, Anxious - Affect Affect: Constricted - Formal Thought Process Formal Thought Process: No Impairment - Homicidal Ideation Homicidal Ideation: No
[2017-10-23] MEDS ORDERED: Aluminum Hydroxide/Magnesium Hydroxide Susp (30 mL) PO PRN (01:09)
--- NOTE | 2017-10-23 01:14 | PCM.PYCHPN ---
Psychiatric Progress Note - Psychiatric Progress Note Patient seen today, length of contact: 15 min Patient Chief Complaint: I am feeling depressed,' Problems Identified/Issues Discussed: Patient seen and evaluated, chart reviewed and discussed with the nurse. Pt reports depressed mood, feelings of hopelessness and helplessness. Pt appears more organized and less internally preoccupied than yesterday. She remained isolated and withdrawn, and confined to his room. Patient reports of withdrawal symptoms including anxiety, headaches and sweating. Patient is compliant with medications and denies any side effects. Symptoms are improving but pt needs more time to stabilize. Support and psychoeducation given. Medication Change: Yes Medical Record Reviewed: Yes Mental Status Examination - Cognitive Function Orientation: Person, Place, Situation, Time Memory: Intact Attention: WNL Concentration: Poor Association: WNL Fund of Knowledge: Poor - Mood Mood: Depressed, Anxious - Affect Affect: Constricted - Speech Speech: Soft - Formal Thought Process Formal Thought Process: No Impairment - Suicidal Ideation Suicidal Ideation: No - Homicidal Ideation Homicidal Ideation: No Goal/Treatment Plan - Goal/Treatment Plan Need for Continued Stay: Severe depression anxiety, Severe functional impairment Progress Toward Problem(s) and Goals/Treatment Plan: Major depressive disorder recurrent severe with psychotic features -CBT -Psychoeducation -Supportive therapy, group therapy -Zoloft 100 mg by mouth daily -Remeron 30 mg PO QHS -Seroquel 100 mg P OQHS -Gabapentin for augmentation -Trazodone for insomnia -Hydroxyzine for anxiety Sed/Hyp use disorder severe Sed/Hyp withdrawal -CBT -Psychoeducation -Supportive therapy, individual therapy -Ativan taper
[2017-10-23] MEDS ORDERED: Pneumococcal 23-Valent Vaccine IM ONE (10:00)
[2017-10-23] MEDS: Pantoprazole 20 mg EC Tab PO SCH ×2 (10:18→17:22)
[2017-10-23] MEDS: Metoprolol Succinate 100 mg XL Tab PO SCH (10:30)
--- NOTE | 2017-10-23 14:18 | PCM.PYCHPN ---
Psychiatric Progress Note - Psychiatric Progress Note Patient seen today, length of contact: 15 min Patient Chief Complaint: "I am still depressed." Problems Identified/Issues Discussed: Pt is seen, chart reviewed, case discussed with staff. Pt is compliant with medications and reports no side-effects. Symptoms are improving but needs more time to stabilize. Pt states that she feels the same today; pt is tearful and afraid that she will be living alone upon discharge because the [facility] will not allow her to bring her son. Pt says that she does not sleep well. Pt reports that she continues to have S/I. After care discussed. Medication Change: Yes Medical Record Reviewed: Yes Mental Status Examination - Cognitive Function Orientation: Person, Place, Situation, Time Memory: Intact Attention: WNL Concentration: Poor Association: WNL Fund of Knowledge: Poor - Mood Mood: Depressed, Anxious - Affect Affect: Constricted - Speech Speech: Soft - Formal Thought Process Formal Thought Process: No Impairment - Suicidal Ideation Suicidal Ideation: No - Homicidal Ideation Homicidal Ideation: No Goal/Treatment Plan - Goal/Treatment Plan Need for Continued Stay: Severe depression anxiety, Severe functional impairment Progress Toward Problem(s) and Goals/Treatment Plan: Continue medications. Support and psychoeducation daily Attend groups and activities daily After care planning by IBIS 15 min
[2017-10-24] MEDS: Metoprolol Succinate 100 mg XL Tab PO SCH (09:56)
[2017-10-24] MEDS: Pantoprazole 20 mg EC Tab PO SCH ×2 (09:56→17:05)
[2017-10-25] MEDS: Pantoprazole 20 mg EC Tab PO SCH ×2 (09:20→17:15)
[2017-10-25] MEDS: Metoprolol Succinate 100 mg XL Tab PO SCH (09:21)
--- NOTE | 2017-10-25 11:07 | PCM.PYCHPN ---
Psychiatric Progress Note - Psychiatric Progress Note Patient seen today, length of contact: 15 min Patient Chief Complaint: I am feeling little better,' Problems Identified/Issues Discussed: Patient seen and evaluated, chart reviewed and discussed with the nurse. Pt reports some improvement in her depressed mood, and some improvement in her sleep and appetite. Patient reports some withdrawal symptoms from valium and xanax. Pt appears more organized than before. She started coming out of her room and appears much better than before. Patient is compliant with medications and denies any side effects. Symptoms are improving but pt needs more time to stabilize. Support and psychoeducation given. Medication Change: Yes Medical Record Reviewed: Yes Mental Status Examination - Cognitive Function Orientation: Person, Place, Situation, Time Memory: Intact Attention: WNL Concentration: Poor Association: WNL Fund of Knowledge: Poor - Mood Mood: Depressed, Anxious - Affect Affect: Constricted - Speech Speech: Soft - Formal Thought Process Formal Thought Process: No Impairment - Suicidal Ideation Suicidal Ideation: No - Homicidal Ideation Homicidal Ideation: No Goal/Treatment Plan - Goal/Treatment Plan Need for Continued Stay: Severe depression anxiety, Severe functional impairment Progress Toward Problem(s) and Goals/Treatment Plan: Major depressive disorder recurrent severe with psychotic features -CBT -Psychoeducation -Supportive therapy, group therapy -Zoloft 200 mg by mouth daily -Remeron 30 mg PO QHS -Seroquel 100 mg P OQHS -Gabapentin for augmentation -Trazodone for insomnia -Hydroxyzine for anxiety Sed/Hyp use disorder severe Sed/Hyp withdrawal -CBT -Psychoeducation -Supportive therapy, individual therapy -Ativan taper
--- NOTE | 2017-10-25 11:08 | PCM.PYCHPN ---
Psychiatric Progress Note - Psychiatric Progress Note Patient seen today, length of contact: 15 min Patient Chief Complaint: I am feeling little better,' Problems Identified/Issues Discussed: Patient seen and evaluated, chart reviewed and discussed with the nurse. Pt reports some improvement in her depressed mood, and some improvement in her feelings of hopelessness and helplessness. Pt appears more organized than yesterday. She remained isolated and withdrawn, and confined to his room. Patient reports some improvement in her withdrawal symptoms as well. Patient is compliant with medications and denies any side effects. Symptoms are improving but pt needs more time to stabilize. Support and psychoeducation given. Medication Change: Yes Medical Record Reviewed: Yes Mental Status Examination - Cognitive Function Orientation: Person, Place, Situation, Time Memory: Intact Attention: WNL Concentration: Poor Association: WNL Fund of Knowledge: Poor - Mood Mood: Depressed, Anxious - Affect Affect: Constricted - Speech Speech: Soft - Formal Thought Process Formal Thought Process: No Impairment - Suicidal Ideation Suicidal Ideation: No - Homicidal Ideation Homicidal Ideation: No Goal/Treatment Plan - Goal/Treatment Plan Need for Continued Stay: Severe depression anxiety, Severe functional impairment Progress Toward Problem(s) and Goals/Treatment Plan: Major depressive disorder recurrent severe with psychotic features -CBT -Psychoeducation -Supportive therapy, group therapy -Zoloft 100 mg by mouth daily -Remeron 30 mg PO QHS -Seroquel 100 mg P OQHS -Gabapentin for augmentation -Trazodone for insomnia -Hydroxyzine for anxiety Sed/Hyp use disorder severe Sed/Hyp withdrawal -CBT -Psychoeducation -Supportive therapy, individual therapy -Ativan taper
[2017-10-26] MEDS: Pantoprazole 20 mg EC Tab PO SCH ×2 (09:24→17:33)
[2017-10-26] MEDS: Metoprolol Succinate 100 mg XL Tab PO SCH (09:24)
--- NOTE | 2017-10-26 11:32 | PCM.PYCHPN ---
Psychiatric Progress Note - Psychiatric Progress Note Patient seen today, length of contact: 15 min Patient Chief Complaint: "I am nervous" Problems Identified/Issues Discussed: The pt is seen, chart reviewed, case discussed with staff. Support and psychoeducation given No new symptoms reported, improving slowly and needs more time No SEs from medications, risks discussed. After care discussed Medication Change: Yes Medical Record Reviewed: Yes Mental Status Examination - Cognitive Function Orientation: Person, Place, Situation, Time Memory: Intact Attention: WNL Concentration: Poor Association: WNL Fund of Knowledge: Poor - Mood Mood: Depressed, Anxious - Affect Affect: Constricted - Speech Speech: Soft - Formal Thought Process Formal Thought Process: No Impairment - Suicidal Ideation Suicidal Ideation: No - Homicidal Ideation Homicidal Ideation: No Goal/Treatment Plan - Goal/Treatment Plan Need for Continued Stay: Severe depression anxiety, Discharge may exacerbated symptoms, Severe functional impairment Progress Toward Problem(s) and Goals/Treatment Plan: Continue medications. Support and psychoeducation daily Attend groups and activities daily After care planning by IBIS
[2017-10-27] MEDS: Pantoprazole 20 mg EC Tab PO SCH ×2 (09:34→17:15)
[2017-10-27] MEDS: Metoprolol Succinate 100 mg XL Tab PO SCH (09:34)
[2017-10-27 15:27] VITALS: O2SAT 99
[2017-10-28 06:44] VITALS: BP 125/76; PULSE 87; RESP 18
[2017-10-28 06:53] VITALS: TEMP 98.1
[2017-10-28] MEDS: Pantoprazole 20 mg EC Tab PO SCH (09:36)
[2017-10-28] MEDS: Metoprolol Succinate 100 mg XL Tab PO SCH (09:37)
--- NOTE | 2017-10-28 10:00 | PCM.PYCHDC ---
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 PT STATES THAT SHE IS DEPRESSED, SHE HAS NO ENERGY , IS NOT HAPPY AND SHE DOES NOT KNOW WHAT TO DO ABOUT IT. PT STATES THAT SHE USUALLY TAKES 2 AMBIENS ABOUT THREE TIMES A DAY. SHE ALSO USES [employer] FOR HER FREQUENT MIGRAINE HEADACHES. PT STATES HER SON WHO IS MENTALLY ILL WANTED TO KILL HER AND THEN HIMSELF. SHE STATES HER OTHER SON IS A DRUG ADDICT. HER DAUGHTER MAY HAVE A SUBSTANCE ABUSE DISORDER AND BLAMES THE PT FOR EVERY THING THAT IS WRONG IN HER LIFE AND HER BROTHERS' LIVES PT CAME TO THE FROM [place] WHEN SHE WAS 16 YEARS OLD. 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 PT HAS BEEN ARRESTED FOR INTERFERING WITH THE POLICE WHEN THEY CAME TO TAKE HER SON.PT HAS HTN AND HAS HAD 2 CVAS. PT HAS NO ENERGY, NO MOTIVATION AND DOES NOT ENJOY ANY THING IN LIFE. SHE FEELS HOPELESS,WORTHLESS AND HELPLESS. SHEC DOES NOT LIKE HERSELF. PT HAS BEEN PRESCRIBED XANAX FOR DEPRESSION AND AMBIEN FOR SLEEP. THERE IS A REPORT THAT POSSIBLY PT BOUGHT AMBIEN ON THE STREET SHE SHE USED SO MUCH ON A DAILY BASIS. PT STATES THAT SHE DID NOT TRY TO KILL HERSELF PT HAS WITH AN OVERDOSED OF AMBIEN. 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 Reason for request. 2. Findings. 3. Follow-up Summary of Hospital Course include:: 1. Description of specific treatment plan utilized for patients during their course of treatmen. 2. Summarize the time- course for resolution of acute symptoms and/or regressed behaviors. 3. Describe issues identified and worked on during hospitalization. 4. Describe medication utilized. 5. Describe medical problems identified and treated. 6. Reassessment of suicide risk - Diagnosis (1) Mixed anxiety and depressive disorder Current Visit: Yes Status: Acute (2) Sedative, hypnotic or anxiolytic use disorder, severe, dependence Current Visit: Yes Status: Acute - Final Diagnosis (DSM 5) Condition upon Discharge: STABLE Disposition: HOME/ ROUTINE Follow-up Treatment Plan: Major depressive disorder recurrent severe with psychotic features -CBT -Psychoeducation -Supportive therapy, group therapy -Zoloft 200 mg by mouth daily -Remeron 30 mg PO QHS -Seroquel 100 mg P OQHS -Gabapentin for augmentation -Trazodone for insomnia -Hydroxyzine for anxiety Sed/Hyp use disorder severe Sed/Hyp withdrawal -CBT -Psychoeducation -Supportive therapy, individual therapy -Ativan taper Prescriptions/Medication Reconciliation: amLODIPine [Norvasc] 10 mg PO HS #30 tab Enalapril Maleate [Vasotec] 5 mg PO DAILY #30 tab Gabapentin [Neurontin] 100 mg PO BID #60 cap hydrOXYzine HCl [Atarax] 25 mg PO BID 15 Days #30 tab Metoprolol Succinate XL [Toprol XL] 100 mg PO DAILY #30 tab Mirtazapine [Remeron] 45 mg PO HS #30 tab traZODone [Desyrel] 100 mg PO HS PRN #30 tab PRN Reason: Insomnia
== END 2017-10-28 11:30 | disposition home or self-care (01) | DRG 885 ==
LOC: C.ER 19:15 → C.5E 22:00 → C.ER 23:24
PROVIDERS: ADMIT Psychiatry & Neurology Psychiatry; ATTEND Psychiatry & Neurology Psychiatry
PROC: GZHZZZZ Group Psychotherapy (ICD-10-PCS; principal; 2017-10-19)
PROC: GZ56ZZZ Individual Psychotherapy, Supportive (ICD-10-PCS; 2017-10-19)
DX: F33.3 Major depressive disorder, recurrent, severe with psychotic symptoms (principal); R45.851 Suicidal ideations; Z68.1 Body mass index [BMI] 19.9 or less, adult; F41.8 Other specified anxiety disorders; G43.909 Migraine, unspecified, not intractable, without status migrainosus; G47.00 Insomnia, unspecified; F41.1 Generalized anxiety disorder; Z86.73 Personal history of transient ischemic attack (TIA), and cerebral infarction without residual deficits; I10 Essential (primary) hypertension; F19.10 Other psychoactive substance abuse, uncomplicated; F13.10 Sedative, hypnotic or anxiolytic abuse, uncomplicated

== ENCOUNTER 2017-11-07 06:54 | Day surgery (SDC) | payer MEDICARE, MEDICAID ==
[2017-11-07 07:33] VITALS: BMI 28.5
[2017-11-07] MEDS ORDERED: Propofol 10 mg/ml Inj (20 ML) ONE (08:59)
--- NOTE | 2017-11-07 09:01 | CP.SDSHP ---
Same Day Surgery H & P - History Proposed Procedure: endoscopy Pre-Op Diagnosis: reflux, abdom pain - Previous Medical/Surgical History Comments: gastritis - Allergies Allergies: Allergies clarithromycin [From Biaxin] Allergy (Verified 11/07/17 07:32) ANGIOEDEMA levofloxacin [From Levaquin] Allergy (Verified 11/07/17 07:32) ANGIOEDEMA Penicillins Allergy (Verified 11/07/17 07:32) ANGIOEDEMA pollen Allergy (Intermediate, Uncoded 10/19/17 19:30) CONGESTION vomiting meds Allergy (Uncoded 11/07/17 07:32) ANGIOEDEMA - Physical Exam Vital Signs: Vital Signs 11/07/17 07:25 Temperature 98.6 F Pulse Rate 80 Respiratory 20 Rate Blood Pressure 140/74 O2 Sat by Pulse 97 Oximetry Mental Status: Alert & Oriented x3 Neuro: WNL Heart: WNL Lungs: WNL GI: WNL - {Optional Preform as Required} Abdomen: WNL - Impression Impression: gastritis, esophagitis - Date & Time Date: 11/07/17 Time: 08:15 Short Stay Discharge - Short Stay Discharge Admitting Diagnosis/Reason for Visit: GERD / ESOPHAGEAL REFLUX Disposition: HOME/ ROUTINE
[2017-11-07] MEDS ORDERED: Lactated Ringer's 500 ML IV ONE (09:08)
[2017-11-07 09:22] VITALS: O2SAT 100
--- NOTE | 2017-11-07 09:26 | CP.SDSHP ---
Same Day Surgery H & P - History Proposed Procedure: colonoscopy Pre-Op Diagnosis: screening - Previous Medical/Surgical History Cardiac: Hypertension - Allergies Allergies: Allergies clarithromycin [From Biaxin] Allergy (Verified 11/07/17 07:32) ANGIOEDEMA levofloxacin [From Levaquin] Allergy (Verified 11/07/17 07:32) ANGIOEDEMA Penicillins Allergy (Verified 11/07/17 07:32) ANGIOEDEMA pollen Allergy (Intermediate, Uncoded 10/19/17 19:30) CONGESTION vomiting meds Allergy (Uncoded 11/07/17 07:32) ANGIOEDEMA - Physical Exam Vital Signs: Vital Signs 11/07/17 11/07/17 07:25 09:08 Temperature 98.6 F 98.6 F Pulse Rate 80 82 Respiratory 20 20 Rate Blood Pressure 140/74 162/72 H O2 Sat by Pulse 97 100 Oximetry Mental Status: Alert & Oriented x3 Neuro: WNL Heart: WNL Lungs: WNL GI: WNL - {Optional Preform as Required} Abdomen: WNL - Impression Impression: screening Pt. Evaluated Today:Candidate for Anesthesia & Procedure: Yes - Date & Time Date: 11/07/17 Time: 09:26 Short Stay Discharge - Short Stay Discharge Admitting Diagnosis/Reason for Visit: GERD / ESOPHAGEAL REFLUX Disposition: HOME/ ROUTINE
[2017-11-07 09:45] VITALS: TEMP 97.8
[2017-11-07 10:28] VITALS: BP 146/74; PULSE 73; RESP 12
== END 2017-11-07 10:28 | disposition home or self-care (01) ==
LOC: C.ENDO 06:54
PROVIDERS: ATTEND Internal Medicine Gastroenterology
DX: K21.9 Gastro-esophageal reflux disease without esophagitis (principal); K31.7 Polyp of stomach and duodenum; K44.9 Diaphragmatic hernia without obstruction or gangrene
CPT/HCPCS: 43239; 88305; 88312; 88342; J2001; J2704; J7120

== ENCOUNTER 2018-01-07 16:13 | Emergency (ER) | payer MEDICARE, MEDICAID ==
[2018-01-07 16:13] VITALS: BMI 28.5
[2018-01-07 16:33] VITALS: RESP 18; TEMP 98.7; O2SAT 97
--- NOTE | 2018-01-07 17:32 | C.PDOC ---
History Of Present Illness 67 Y F w/ PMHx of HTN, GERD, migraine, back pain, presents to ED for L wrist sprain following a fall. Patient states she did not have LOC and simply used her wrist to brace herself for the fall. Patient states she is unable to move her hand due to pain with the pain being localized int eh L wrist. Patient denies chest pain, SOB, N/V, f/c, abdominal pain. <Shashi Virk - Last Filed: 01/07/18 17:25> - HPI History Per: Patient Onset/Duration Of Symptoms: Hrs Injury Occurred (Timing): Hours Ago: (2) Location Of Injury: Left: Wrist - Fall Fall:Prior To Injury: Tripped <Shashi Virk - Last Filed: 01/07/18 17:25> <Tesfaye Bautista E - Last Filed: 01/07/18 18:05> - HPI Time Seen by Provider: 01/07/18 16:55 Chief Complaint (Nursing): Trauma Past Medical History Vital Signs: Last Vital Signs Temp 98.7 F 01/07/18 16:30 Pulse 91 H 01/07/18 16:30 Resp 18 01/07/18 16:30 BP 179/93 H 01/07/18 16:30 Pulse Ox 97 01/07/18 16:30 - Medical History PMH: Anemia, Anxiety, Arthritis, Bronchitis, Colonic Polyps, Depression (ADMITTED TO IN PATIENT TREATMENT TWO WEEKS AGO), Diverticulitis, Gastritis, Gastrointestinal Ulcer, HTN, Migraine, Pneumonia, TIA Denies: Asthma, Atrial Fibrillation, Bipolar Disorder, Cardia Arrhythmia, CHF, Diabetes, Fractures, Hepatitis, HIV, Hypercholesterolemia, Mitral Valve Prolapse, Paranoia, Peripheral Edema, Post Traumatic Stress Disorder, Chronic Kidney Disease, Schizophrenia, Sexually Transmitted Disease Surgical History: Endoscopy Denies: Pacemaker - [facility] Procedures ENDOSC POLYPECTOMY OF LG INTEST (09/17/13) ESOPHAGOGASTRODUODENOSCOPY [EGD] W/CLOSED BIOPSY (09/30/14) GROUP PSYCHOTHERAPY (10/19/17) INDIVIDUAL PSYCHOTHERAPY, SUPPORTIVE (10/19/17) Family History: States: Unknown Family Hx - Social History Hx Tobacco Use: No Hx Alcohol Use: No Hx Substance Use: Yes - Immunization History Hx Tetanus Toxoid Vaccination: No Hx Influenza Vaccination: No Hx Pneumococcal Vaccination: No <Shashi Virk - Last Filed: 01/07/18 17:25> Vital Signs: Last Vital Signs Temp 98.7 F 01/07/18 16:30 Pulse 91 H 01/07/18 16:30 Resp 18 01/07/18 16:30 BP 179/93 H 01/07/18 16:30 Pulse Ox 97 01/07/18 17:37 - [facility] Procedures ENDOSC POLYPECTOMY OF LG INTEST (09/17/13) ESOPHAGOGASTRODUODENOSCOPY [EGD] W/CLOSED BIOPSY (09/30/14) GROUP PSYCHOTHERAPY (10/19/17) INDIVIDUAL PSYCHOTHERAPY, SUPPORTIVE (10/19/17) <Tesfaye Bautista - Last Filed: 01/07/18 18:05> Review Of Systems Constitutional: Negative for: Fever, Chills Eyes: Positive for: Pain Cardiovascular: Negative for: Chest Pain, Palpitations Respiratory: Negative for: Shortness of Breath Gastrointestinal: Negative for: Nausea, Vomiting Neurological: Negative for: Weakness, Numbness <Shashi Virk - Last Filed: 01/07/18 17:25> Physical Exam - Physical Exam Appears: Well, Non-toxic, No Acute Distress Skin: Normal Color, Warm, Pale Head: Atraumatic, No Normacephalic, No Swelling Extremity: No Normal ROM, Tenderness (L wrist tenderness on palpation, reduced passive extension/ flexion ) <Shashi Virk M - Last Filed: 01/07/18 17:25> ED Course And Treatment O2 Sat by Pulse Oximetry: 97 <Shashi Virk - Last Filed: 01/07/18 17:25> Medical Decision Making Medical Decision Making: L thumb wrist/thumb sprain, no fx XR L thumb/wrist neg. <Tesfaye Bautista - Last Filed: 01/07/18 18:05> Disposition <Shashi Virk - Last Filed: 01/07/18 17:25> Doctor Will See Patient In The: Office Counseled Patient/Family Regarding: Studies Performed, Diagnosis - Disposition Disposition Time: 18:04 <Tesfaye Bautista - Last Filed: 01/07/18 18:05> - Disposition Disposition: HOME/ ROUTINE Condition: GOOD Forms: [facility] (Nepali) - Clinical Impression Clinical Impression: Left wrist sprain Critical Care Time
--- NOTE | 2018-01-07 18:07 | RAD ---
PROCEDURE: Left Wrist Radiographs. HISTORY: s/p fall, wrist pain COMPARISON: None available. FINDINGS: BONES: Osseous demineralization limits evaluation for acute fracture lines. Acute fracture of the distal radius. Displaced ulna styloid fracture. Suboptimal evaluation of the carpus, in particular the scaphoid; if this is of clinical concern recommend scaphoid view if clinically feasible or CT. JOINTS: No dislocation. SOFT TISSUES: Soft tissue swelling. No evidence of retained radiopaque foreign body OTHER FINDINGS: The patient's bracelet obscures evaluation of the distal forearm IMPRESSION: Soft tissue swelling. Acute fractures of the distal radius and ulna styloid. Suboptimal evaluation of the carpus, in particular the scaphoid; if this is of clinical concern recommend scaphoid view if clinically feasible or CT. Osseous demineralization.
[2018-01-07 18:37] VITALS: BP 174/93; PULSE 78
== END 2018-01-07 18:36 | disposition home or self-care (01) ==
LOC: C.ER 16:13
DX: S63.502A Unspecified sprain of left wrist, initial encounter (principal); W01.0XXA Fall on same level from slipping, tripping and stumbling without subsequent striking against object, initial encounter; Y92.89 Other specified places as the place of occurrence of the external cause

== ENCOUNTER 2018-07-24 08:14 | Outpatient (CLI) | payer MEDICARE, MEDICAID | END 2018-07-24 08:15 | disposition home or self-care (01) | LOC: C.USIC 08:14 | DX: K83.1 Obstruction of bile duct (principal) ==